=== PATIENT | male | born 1985 | race Two or more races ===

== ENCOUNTER 2024-04-06 08:00 | Inpatient (IN) | payer SELFPAY ==
[~2024-04-06] VITALS: Ht 175.3 cm; Wt 76.0 kg
[2024-04-06 08:24] LABS: Basophils # (auto) 0 10 ^3/uL (0-0.2); Basophils % (auto) 0.3 % (0.0-2.0); Eosinophils # (auto) 0.1 10 ^3/uL (0-0.8); Eosinophils % (auto) 2.1 % (0.0-7.0); Hematocrit 44.5 % (41.0-53.0); Hemoglobin 15.3 g/dL (13.5-17.5); Lymphocytes # (auto) 1.1 10 ^3/uL (0.4-5.4); Mean Corpuscular Hemoglobin 27.2 pg (28.0-32.0); Mean Corpuscular Hgb Conc. 34.5 g/dL (32.0-36.0); Mean Corpuscular Volume 78.7 fL (80.0-100.0); Monocytes # (auto) 0.9 10 ^3/uL (0-1.3); Monocytes % (auto) 15.5 % (0.0-12.0); Neutrophils # (auto) 3.5 10 ^3/uL (1.6-8.6); Neutrophils % (auto) 62.1 % (37.0-80.0); Nucleated Red Blood Cells % 0.2 %; Red Blood Cells 5.65 10^6/uL (4.5-5.90); Red Cell Distribution Width 13.6 % (11.8-14.3); White Blood Cell 5.6 10^3/uL (4.4-10.8)
[2024-04-06 08:41] LABS: Alanine Aminotransferase 43 U/L (7-40); Albumin 4.2 g/dL (3.2-4.8); Alkaline Phosphatase 140 U/L (46-116); Anion Gap 6 (5-15); Aspartate Aminotransferase 51 U/L (13-40); BUN/Creatinine Ratio 17.7 (10.0-20.0); Bilirubin, Total 1.1 mg/dL (0.2-1.0); Blood Urea Nitrogen 11 mg/dL (9-23); Calcium 11.5 mg/dL (8.5-10.1); Carbon Dioxide 26 mmol/L (20-30); Chloride 104 mmol/L (98-107); Glucose 102 mg/dL (74-106); Magnesium 1.8 mg/dL (1.6-2.6); Potassium 4.2 mmol/L (3.5-5.1); Sodium 136 mmol/L (136-145)
[2024-04-06] MEDS: IOHEXOL 300 MG/ML 100ML BOTTLE IJ ONE (09:45)
[2024-04-06 11:54] LABS: Urine Bacteria None Seen /hpf (None Seen)
[2024-04-06 12:09] LABS: Urine Blood Negative /uL (Negative); Urine Clarity Clear (Clear); Urine Color Yellow (Yellow); Urine Hyaline Cast FEW /lpf (0 - 2); Urine Mucus FEW (None Seen); Urine Protein, UAD Negative (Negative); Urine Urobilinogen Normal (Negative); Urine WBC 2 /hpf (0 - 3)
[2024-04-06] MEDS ORDERED: MORPHINE SULFATE INJ 2 MG/ml SYRG IV PRN ×2 (13:45)
[2024-04-06] MEDS ORDERED: DOCUSATE SOD 100 MG CAP PO PRN (13:45)
[2024-04-06] MEDS ORDERED: ONDANSETRON HCL 4 MG/2 ML VIAL IV PRN (13:45)
[2024-04-06] MEDS ORDERED: NITROGLYCERIN 0.4 MG SL TAB SL PRN (13:45)
[2024-04-06] MEDS: SODIUM CHLORIDE 0.9% 1,000 ML IV SCH (13:57)
[2024-04-06 14:34] VITALS: BP 122/66; PULSE 94; RESP 20; TEMP 97.4; O2SAT 97
[2024-04-06 14:44] LABS: INR 1.07 (0.9-1.15); Prothrombin Time 11.3 sec (9.3-11.8)
[2024-04-06 17:00] VITALS: BP 142/75; PULSE 103; RESP 20; TEMP 97.8; O2SAT 97
[2024-04-06] MEDS ORDERED: ENOXAPARIN SOD 100 MG/1 ML SYRINGE SC SCH (19:30)
[2024-04-06 20:00] VITALS: PULSE 100; RESP 20; O2SAT 100
[2024-04-06 21:00] VITALS: BP 114/79; PULSE 73; RESP 18; TEMP 98; O2SAT 97
[2024-04-06] MEDS: ENOXAPARIN SOD 80 MG/0.8ML SYRINGE SC SCH (21:37)
[2024-04-07] VITALS (7 sets, daily range): BP systolic 105–142; BP diastolic 62–84; PULSE 88–100; RESP 16–20; TEMP 97.3–98.8; O2SAT 95–100
[2024-04-07 06:47] LABS: Basophils # (auto) 0 10 ^3/uL (0-0.2); Basophils % (auto) 0.2 % (0.0-2.0); Eosinophils # (auto) 0.1 10 ^3/uL (0-0.8); Eosinophils % (auto) 1.2 % (0.0-7.0); Mean Corpuscular Hemoglobin 26.9 pg (28.0-32.0); Monocytes # (auto) 0.6 10 ^3/uL (0-1.3); Nucleated Red Blood Cells % 0.1 %; Red Cell Distribution Width 13.3 % (11.8-14.3)
[2024-04-07 06:50] LABS: Hematocrit 39.7 % (41.0-53.0); Hemoglobin 13.6 g/dL (13.5-17.5); Lymphocytes # (auto) 0.9 10 ^3/uL (0.4-5.4); Lymphocytes % (auto) 14.2 % (10.0-50.0); Mean Corpuscular Hgb Conc. 34.3 g/dL (32.0-36.0); Mean Corpuscular Volume 78.5 fL (80.0-100.0); Monocytes % (auto) 9.8 % (0.0-12.0); Neutrophils # (auto) 4.7 10 ^3/uL (1.6-8.6); Neutrophils % (auto) 74.6 % (37.0-80.0); Red Blood Cells 5.06 10^6/uL (4.5-5.90); White Blood Cell 6.2 10^3/uL (4.4-10.8)
[2024-04-07 06:59] LABS: Alanine Aminotransferase 34 U/L (7-40); Albumin 3.7 g/dL (3.2-4.8); Alkaline Phosphatase 117 U/L (46-116); Anion Gap 8 (5-15); Aspartate Aminotransferase 33 U/L (13-40); BUN/Creatinine Ratio 24.1 (10.0-20.0); Bilirubin, Total 0.6 mg/dL (0.2-1.0); Blood Urea Nitrogen 14 mg/dL (9-23); Calcium 10.9 mg/dL (8.5-10.1); Carbon Dioxide 24 mmol/L (20-30); Chloride 105 mmol/L (98-107); Glucose 95 mg/dL (74-106); Potassium 4.3 mmol/L (3.5-5.1); Sodium 137 mmol/L (136-145)
[2024-04-07 08:06] LABS: PSA Free 0.29 ng/mL; Prostate Specific Antigen 0.5 ng/mL (0.0-4.0)
[2024-04-07 14:38] LABS: Erythrocyte Sedimentation Rate 46 mm/hr (0-20)
[2024-04-08 05:00] VITALS: BP 111/67; PULSE 85; RESP 18; TEMP 97.6; O2SAT 98
[2024-04-08 08:00] VITALS: PULSE 76; RESP 18; O2SAT 100
[2024-04-08 09:00] VITALS: BP 121/60; PULSE 77; RESP 20; TEMP 97.6; O2SAT 98
[2024-04-08] MEDS ORDERED: METH5TAB98 PO (11:22)
[2024-04-08 13:00] VITALS: BP 123/64; PULSE 91; RESP 18; TEMP 97.6; O2SAT 100
[2024-04-08 13:24] VITALS: BP 123/64; PULSE 91; RESP 18; TEMP 36.4; O2SAT 100
[2024-04-09 12:54] LABS: Free T3 18.67 pg/mL (2.3-4.2)
[2024-04-09 12:58] LABS: Free T4 (Free Thyroxine) 4.49 ng/dL (0.89-1.76)
[2024-04-09 14:13] LABS: Hepatitis A Ab IgM Negative
[2024-04-09 14:14] LABS: Hepatitis B Core IgM Negative
[2024-04-09 14:15] LABS: Hepatitis C Antibody Negative (Negative)
[2024-04-10 03:36] LABS: Hepatitis B Surface Antigen Negative (Negative)
== END 2024-04-08 15:12 | disposition home or self-care (01) | DRG 645 ==
LOC: ER 08:00 → OVERFLOW 13:36 → EAST 14:35
PROVIDERS: ADMIT Nurse Practitioner Family; ATTEND Nurse Practitioner Family
DX: E05.90 Thyrotoxicosis, unspecified without thyrotoxic crisis or storm (principal); E80.6 Other disorders of bilirubin metabolism; R74.01 Elevation of levels of liver transaminase levels; N40.0 Benign prostatic hyperplasia without lower urinary tract symptoms; Z87.891 Personal history of nicotine dependence; Z79.899 Other long term (current) drug therapy
CPT/HCPCS: 36415; 71046; 74177; 76536; 76705; 80053; 80074; 80320; 81001; 82378; 83735; 84154; 84439; 84443; 84481; 84484; 85025; 85379; 85610; 85652; 86703; 93005; 93306; G0378